=== PATIENT | female | born 1950 | race Caucasian/White ===

== ENCOUNTER 2023-11-02 07:34 | Outpatient (RCR) | payer MEDICARE, SELFPAY | END 2023-11-23 23:59 | disposition home or self-care (01) | LOC: INF 07:34 | PROVIDERS: PCP Family Medicine; Visit Provider Internal Medicine Hematology & Oncology | DX: R22.42 Localized swelling, mass and lump, left lower limb (principal) | CPT/HCPCS: G0463 ==

== ENCOUNTER 2024-01-04 07:36 | Outpatient (RCR) | payer MEDICARE, SELFPAY | END 2024-01-04 15:44 | disposition home or self-care (01) | LOC: INF 07:36 | PROVIDERS: PCP Family Medicine; Visit Provider Internal Medicine Hematology & Oncology | DX: R22.42 Localized swelling, mass and lump, left lower limb (principal) | CPT/HCPCS: G0463 ==